=== PATIENT | female | born 1970 | race Caucasian/White ===

== ENCOUNTER → 2017-06-03 | Outpatient (CLI) | payer MEDICAID | LOC: LAB 10:39 | PROVIDERS: Internal Medicine | DX: D68.9 Coagulation defect, unspecified (principal) ==

== ENCOUNTER → 2017-06-14 | Outpatient (CLI) | payer MEDICAID ==
--- NOTE | 2017-06-14 10:44 | RADIOLOGY REPORT PS360 ---
CT HEAD W/O CONTRAST HISTORY: Severe headache CLOTTING DISORDER, ANTITHROMBIN III DEFICENCY ORDERING PHYSICIAN: Robb Silveira MD PATIENT AGE: 46 years COMPARISON: None TECHNIQUE: Axial images obtained without contrast. Brain and bone windows reviewed. FINDINGS: No midline shift, mass effect, intracranial hemorrhage, hydrocephalus, or extra-axial fluid collection is evident. There is slight increased density along the territory M just superficial to the petrous bone medially probably related to partial volume averaging artifact from the tentorium as there is some minimal head tilt. Hemorrhage along the tentorium is felt to be less likely. If symptoms persist, MRI without and with contrast may be of further value. The calvarium has an unremarkable appearance. No mastoid effusion. The visualized paranasal sinuses are unremarkable. IMPRESSION: No definite acute finding. Please see above for detail.
== END ==
LOC: RAD 07:53
DX: D68.9 Coagulation defect, unspecified (principal)